=== PATIENT | male | born 1975 ===

== ENCOUNTER → 2019-10-20 | Day surgery (SDC) | payer OTHER ==
[~2019-10-20] MED LIST: LACTATED RINGERS 1,000 ML IV SCH; LIDOCAINE 1% (10MG/ML) FOR IV START INTRADERMA PRN; LIDOCAINE 1% INJ 10MG/ML (20 ML MDV) ONE; MIDAZOLAM 2 MG/2 ML VIAL IV PRN; PROPOFOL 10 MG/ML 20 ML VIAL IV ONE
[2019-10-20 10:09] VITALS: BMI 36.6
[2019-10-20 11:15] VITALS: TEMP 97.7
--- NOTE | 2019-10-20 13:06 | P.PCN ---
Date of Procedure: 10/20/19 Procedure(s) Performed: BRIEF HISTORY: Patient is a 44-year-old, pleasant, white male scheduled for an upper endoscopy as a part of evaluation of long-standing history of GERD.. PROCEDURE PERFORMED: Esophagogastroduodenoscopy with biopsy. PREOPERATIVE DIAGNOSIS: Long-standing history of GERD. IV sedation per anesthesia. PROCEDURE: After informed consent was obtained, the patient was brought into the endoscopy unit. IV sedation was administered by Anesthesia under continuous monitoring. Initially the Olympus GIF-140 video endoscope was inserted into the mouth. Esophagus intubated without any difficulty. It was gradually advanced into the stomach and duodenum and carefully examined. The bulb and the second part of the duodenum appeared normal. The scope at this time was withdrawn to the stomach, adequately insufflated with air, and upon careful examination, mucosa of the antrum, had mild gastritis and biopsies were done from this area. The body, cardia and the fundus appeared normal. The scope was then withdrawn into the esophagus. Small sliding-type well hernia noted. The GE junction was located at 43 cm from the incisors. There were 2 superficial erosions at the GE junction with LA grade B reflux esophagitis. Rest of esophagus appeared normal and the patient tolerated the procedure well. IMPRESSION: 1.Mild antral gastritis. 2. LA grade B reflux esophagitis, small hiatal hernia RECOMMENDATIONS: The findings of this examination were discussed with the patient as well as his family. he will follow with the biopsy results. He was advised to continue with omeprazole 20 mg daily and follow antireflux measures..
[2019-10-20 13:16] VITALS: RESP 17
[2019-10-20 13:29] VITALS: BP 93/54; PULSE 94
== END ==
LOC: ORWHC2ENDO 10:57
PROVIDERS: ATTEND Internal Medicine Gastroenterology
DX: K21.0 Gastro-esophageal reflux disease with esophagitis (principal); K29.50 Unspecified chronic gastritis without bleeding; K44.9 Diaphragmatic hernia without obstruction or gangrene; I10 Essential (primary) hypertension; F17.200 Nicotine dependence, unspecified, uncomplicated; G47.33 Obstructive sleep apnea (adult) (pediatric); Z79.899 Other long term (current) drug therapy; Z79.82 Long term (current) use of aspirin
CPT/HCPCS: 88305; 43239; J2001; J2704